=== PATIENT | male | born 1985 ===

== ENCOUNTER 2022-02-01 15:11 | Emergency (ER) | payer SELFPAY ==
[2022-02-01] MEDS ORDERED: PANTOPRAZOLE 40 MG INJ IV ONE (16:05)
[2022-02-01] MEDS ORDERED: SODIUM CHLORIDE 0.9% 500 ML 500 ML IV ONE (16:05)
[2022-02-01] MEDS ORDERED: ASPIRIN 325 MG TAB PO ONE (16:05)
[2022-02-01] MEDS ORDERED: ALUM-MAG HYDROXIDE-SIMETHICONE 200-200-20MG/5ML ORAL LIQD 30 ML PO ONE ×2 (16:05→19:22)
--- NOTE | 2022-02-01 16:21 | Emergency Department Report ---
ED Chest Pain HPI - General Chief Complaint: Chest Pain Stated Complaint: CHEST PAIN/COMBATIVE Time Seen by Provider: 02/01/22 15:43 Source: patient, EMS Mode of arrival: Stretcher Limitations: No Limitations - History of Present Illness Initial Comments: 36 yo male with a history of gastritis and substance abuse presents to the emergency department complaining of severe substernal chest and epigastric pressure which has been present intermittently since this morning after drinking several beers. Patient also complains of nausea, but no vomiting. Patient states that the pain has improved without intervention, now. Patient denies weakness, dizziness, diaphoresis, lower extremity pain or swelling. Patient denies any other symptoms. Patient reports similar symptoms in the past when he has drank alcohol, but states that he had not been drinking in over a year, but started last night. Patient also states that he has a history of cocaine and ice use, but not in the last week. Severity scale (0 -10): 4 - Related Data Previous Rx's Medication Instructions Recorded Last Taken Type Sucralfate 1 gm MC TID PRN #420 02/01/22 Unknown Rx traMADoL [Ultram 50 MG tab] 50 mg PO Q4HR PRN #12 tablet 02/01/22 Unknown Rx Allergies Allergy/AdvReac Type Severity Reaction Status Date / Time No Known Allergies Allergy Unverified 02/01/22 15:36 Heart Score - HEART Score History: Moderately suspicious EKG: Normal Age: < 45 Risk factors: No known risk factors Troponin: < normal limit HEART Score: 1 - EKG Read Time Time EKG Completed: 16:06 EKG Read Time: 16:06 - Critical Actions Critical Actions: 0-3 pts:0.9-1.7%risk of adverse cardiac event.Candidate for discharge ED Review of Systems ROS: Stated complaint: CHEST PAIN/COMBATIVE Other details as noted in HPI Comment: All other systems reviewed and negative Constitutional: denies: chills, fever Eyes: denies: eye pain, eye discharge, vision change ENT: denies: ear pain, throat pain Respiratory: no symptoms reported. denies: cough, shortness of breath, wheezing Cardiovascular: chest pain. denies: palpitations, edema, syncope, paroxysmal nocturnal dyspnea Endocrine: no symptoms reported Gastrointestinal: abdominal pain (Epigastric). denies: nausea, diarrhea Genitourinary: denies: urgency, dysuria Musculoskeletal: denies: back pain, joint swelling, arthralgia Skin: denies: rash, lesions Neurological: denies: headache, weakness, paresthesias Psychiatric: denies: anxiety, depression Hematological/Lymphatic: denies: easy bleeding, easy bruising ED Past Medical Hx - Medications Home Medications: Home Medications Medication Instructions Recorded Confirmed Last Taken Type Sucralfate 1 gm MC TID PRN #420 02/01/22 Unknown Rx traMADoL [Ultram 50 MG tab] 50 mg PO Q4HR PRN #12 tablet 02/01/22 Unknown Rx ED Physical Exam - General Limitations: No Limitations General appearance: alert, in no apparent distress - Head Head exam: Present: atraumatic, normocephalic - Eye Eye exam: Present: normal appearance, PERRL, EOMI - ENT ENT exam: Present: mucous membranes moist - Neck Neck exam: Present: normal inspection - Respiratory Respiratory exam: Present: normal lung sounds bilaterally. Absent: respiratory distress, wheezes, rales - Cardiovascular Cardiovascular Exam: Present: normal rhythm, tachycardia. Absent: systolic murmur, diastolic murmur, rubs, gallop - GI/Abdominal GI/Abdominal exam: Present: soft, tenderness (Epigastric), normal bowel sounds - Rectal Rectal exam: Present: deferred - Extremities Exam Extremities exam: Present: normal inspection, full ROM, other (No evidence of DVT). Absent: tenderness, calf tenderness - Back Exam Back exam: Present: normal inspection - Neurological Exam Neurological exam: Present: alert, oriented X3, CN II-XII intact - Psychiatric Psychiatric exam: Present: normal affect, normal mood - Skin Skin exam: Present: warm, dry, intact, normal color. Absent: rash ED Course Vital Signs 02/01/22 02/01/22 02/01/22 15:11 16:09 16:16 Temperature 98.1 F Pulse Rate 137 H 136 H 137 H Respiratory 16 13 16 Rate Blood Pressure 126/85 Blood Pressure 144/89 [Left] O2 Sat by Pulse 96 97 Oximetry 02/01/22 02/01/22 02/01/22 16:30 17:18 17:30 Temperature Pulse Rate 134 H 130 H Respiratory 15 19 Rate Blood Pressure 129/87 133/93 133/93 Blood Pressure [Left] O2 Sat by Pulse 98 97 95 Oximetry 02/01/22 02/01/22 02/01/22 17:46 18:12 18:16 Temperature Pulse Rate 124 H Respiratory 21 Rate Blood Pressure 84/51 150/89 150/89 Blood Pressure [Left] O2 Sat by Pulse 98 98 97 Oximetry 02/01/22 02/01/22 19:37 20:55 Temperature 98.6 F Pulse Rate 104 H Respiratory 18 Rate Blood Pressure Blood Pressure 150/87 [Left] O2 Sat by Pulse 100 Oximetry - Reevaluation(s) Reevaluation #1: 02/01/22 19:21 Patient had moderate improvement of pain, but reports that the pain has returned. Will repeat EKG and troponin. Reevaluation #2: 02/05/22 16:58 Patient had improvement of his pain, and his vital signs improved significantly. ED Medical Decision Making - Lab Data Result diagrams: 02/01/22 16:48 02/01/22 16:48 - EKG Data 02/01/22 19:51 Sinus tachycardia at 139 with possible left atrial enlargement and Q waves in lead III, normal axis. No other evidence of ischemia or acute infarct. - Radiology Data Radiology results: report reviewed cta chest: IMPRESSION: 1. No aortic dissection or other acute process. Signer Name: Blaze Estrada MD - Medical Decision Making This is a 36-year-old male who presented with substernal chest pressure and epigastric pain after drinking heavily since last night. Patient's vital signs were remarkable for sinus tachycardia, however other vital signs were within normal limits. Patient exam, initially, was concerning for tachycardia. EKG showed sinus tachycardia at 139 without ischemic changes. Chest x-ray and CTA chest abdomen and pelvis showed no acute changes. Blood work was unremarkable. Patient's heart rate improved significantly after being given morphine and Protonix as well as IV fluids. Patient understood that his likely diagnosis is gastritis and anxiety, and the patient is amenable to plan to be discharged home with strict instructions to no longer use alcohol or any medications or drugs that are not prescribed to him. Critical care attestation.: If time is entered above; I have spent that time in minutes in the direct care of this critically ill patient, excluding procedure time. ED Disposition Clinical Impression: Epigastric pain Chest pain Qualifiers: Chest pain type: unspecified Qualified Code(s): R07.9 - Chest pain, unspecified Disposition: 01 HOME / SELF CARE / HOMELESS Is pt being admited?: No Condition: Stable Instructions: Abdominal Pain, Adult, Nonspecific Chest Pain, Adult Prescriptions: Sucralfate 1 gm MC TID PRN #420 PRN Reason: Pain, Moderate (4-6) traMADoL [Ultram 50 MG tab] 50 mg PO Q4HR PRN #12 tablet PRN Reason: Pain Referrals: PRIMARY CARE, [Primary Care Provider] - 3-5 Days HAYDER BAPTISTE MD [Staff Physician] - 3-5 Days Time of Disposition: 20:28 Print Language: SCOTTISH
[2022-02-01] MEDS ORDERED: ONDANSETRON 4 MG/2 ML INJ IV ONE (16:22)
--- NOTE | 2022-02-01 16:38 | XRay Report ---
CHEST 1 VIEW 02/01/2022 3:22 PM INDICATION / CLINICAL INFORMATION: Chest Pain. COMPARISON: None available. FINDINGS: SUPPORT DEVICES: None. HEART / MEDIASTINUM: No significant abnormality. LUNGS / PLEURA: No significant pulmonary or pleural abnormality. No pneumothorax. ADDITIONAL FINDINGS: No significant additional findings. IMPRESSION: 1. No acute findings. Signer Name: Keith Mott MD Signed: 02/01/2022 4:34 PM Workstation Name: [id number]
[2022-02-01] MEDS ORDERED: MORPHINE 2 MG/1 ML INJ IV ONE ×2 (17:05→19:22)
[2022-02-01 17:37] LABS: Basophils % (Auto) 0.5 % (0.0-1.8); Hemoglobin 16.5 gm/dl (11.8-15.2); Lymphocytes # (Auto) 0.9 K/mm3 (1.2-5.4); Lymphocytes % (Auto) 8.8 % (13.4-35.0); Mean Corpuscular HGB Conc 35 % (32-34); Mean Corpuscular Volume 90 fl (84-94); Monocytes # (Auto) 0.4 K/mm3 (0.0-0.8); Monocytes % (Auto) 3.4 % (0.0-7.3); Platelet Count 297 K/mm3 (140-440); Red Blood Count 5.21 M/mm3 (3.65-5.03); Red Cell Distribution Width 12.8 % (13.2-15.2)
[2022-02-01 17:39] LABS: Alanine Aminotransferase 23 units/L (7-56); Albumin 5.6 g/dL (3.9-5); BUN/Creatinine Ratio 10; Blood Urea Nitrogen 11 mg/dL (9-20); Calcium 9.8 mg/dL (8.4-10.2); Hemolysis Index 16
[2022-02-01 18:00] LABS: INR 0.98 (0.87-1.13)
[2022-02-01 18:01] LABS: Partial Thromboplastin Time 30.2 Sec. (24.2-36.6)
--- NOTE | 2022-02-01 18:41 | Cat Scan Report ---
CTA CHEST WITH CONTRAST INDICATION / CLINICAL INFORMATION: r/o dissection 100ml of [id number]. TECHNIQUE: Axial CT images were obtained through the chest after injection of IV contrast. 3 plane MS P and/or 3D reconstructions were produced. All CT scans at this location are performed using CT dose reduction for ALARA by means of automated exposure control. COMPARISON: None available. FINDINGS: PULMONARY EMBOLUS: No large or central pulmonary thromboembolus. Peripheral branch evaluation is limi tali secondary to technique with contrast timing to optimally opacify the thoracic aorta. HEART: No significant abnormality. THORACIC AORTA: Normal caliber without aneurysm, dissection or significant atherosclerosis. CORONARY ARTERY CALCIFICATION: Absent -- None. PLEURA: No pleural effusion. No pneumothorax. LUNGS: Clear without evidence for acute pneumonia, pulmonary edema or significant interstitial diseas e. Small benign left lower lobe calcified granuloma without suspicious pulmonary nodule. LYMPH NODES: No pathologic thoracic lymphadenopathy. UPPER ABDOMEN: Normal abdominal aorta, iliac arteries, mesenteric and renal arteries without aneurysm , dissection or stenosis. Retroaortic left renal vein. Mild diffuse hepatic steatosis. The gallbladde r, spleen, pancreas, kidneys, adrenal glands and gastrointestinal system are unremarkable. No free pe ritoneal fluid or hemorrhage. SKELETAL STRUCTURES: No acute or destructive osseous process. IMPRESSION: 1. No aortic dissection or other acute process. Signer Name: Blaze Estrada MD Signed: 02/01/2022 6:37 PM Workstation Name: [id number]
--- NOTE | 2022-02-01 18:42 | Cat Scan Report ---
CTA ABDOMEN AND PELVIS WITH CONTRAST INDICATION / CLINICAL INFORMATION: r/o dissection. TECHNIQUE: Axial CT images were obtained through the abdomen and pelvis before and after after inject ion of 100 mL Omnipaque 350 IV contrast. 3 plane MIP / 3D reconstructions were produced. All CT scans at this location are performed using CT dose reduction for ALARA by means of automated exposure cont rol. COMPARISON: None available. FINDINGS: AORTA: No significant abnormality. RENAL ARTERIES: No significant abnormality. CELIAC ARTERY: No significant abnormality. SUPERIOR MESENTERIC ARTERY: No significant abnormality. INFERIOR MESENTERIC ARTERY: No significant abnormality. RIGHT ILIAC ARTERIES: No significant abnormality.. LEFT ILIAC ARTERIES: No significant abnormality.. ADDITIONAL FINDINGS: Mild diffuse hepatic steatosis. SKELETAL: No significant abnormality. IMPRESSION: 1. No aortic dissection or other acute process. Signer Name: Blaze Estrada MD Signed: 02/01/2022 6:38 PM Workstation Name: [id number]
[2022-02-01] MEDS ORDERED: ASPIRIN EC 325 MG TAB PO ONE (19:22)
[2022-02-01 20:57] VITALS: BP 150/87
--- NOTE | 2022-02-02 09:31 | Electrocardiograph Report ---
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
--- NOTE | 2022-02-02 09:33 | Electrocardiograph Report ---
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
== END 2022-02-01 20:57 | disposition home or self-care (01) ==
LOC: EDSEX → ED 15:11
DX: R07.9 Chest pain, unspecified (principal); R10.13 Epigastric pain
CPT/HCPCS: 36415; 71045; 71275; 74174; 80053; 84484; 85025; 85610; 85730; 93005; 96374; 96375; 99285; C9113; J2270; J2405; J7040; Q9967; 80320; 99284; G0480